=== PATIENT | male | born 1985 | race Hispanic/Latino ===

== ENCOUNTER 2021-01-21 06:04 | Emergency (ER) | payer OTHER ==
[2021-01-21] MEDS ORDERED: ceFAZolin 2 GM/DEX 5% 100 ML BAG ONE (06:35)
[2021-01-21] MEDS ORDERED: Morphine 10 MG/ML VIAL ONE (06:35)
== END 2021-01-21 08:38 | disposition home or self-care (01) ==
LOC: ERS 06:04
DX: S02.2XXA Fracture of nasal bones, initial encounter for closed fracture (principal); S01.81XA Laceration without foreign body of other part of head, initial encounter; R00.0 Tachycardia, unspecified; Y04.0XXA Assault by unarmed brawl or fight, initial encounter
CPT/HCPCS: 70450; 70486; 72125; 94760; 96365; 96375; J2270